=== PATIENT | female | born 1950 | race Caucasian/White ===

== ENCOUNTER 2023-08-04 11:55 | Emergency (ER) | payer MEDICARE, OTHER ==
[~2023-08-04] VITALS: Ht 160 cm; Wt 95.3 kg
[~2023-08-04 11:55] MED LIST: AMLO-258 PO; DOXY100T2 PO; DULO20CA18 PO; GABA600T10 PO; PRED20TA3 PO; ROPI0.5T37 PO
[2023-08-04] MEDS ORDERED: MELOXICAM 7.5 MG TABLET PO SCH (12:30)
[2023-08-04] MEDS ORDERED: MELO-106 PO (12:56)
[2023-08-04 13:09] VITALS: BP 146/58; PULSE 68; RESP 18; O2SAT 97
== END 2023-08-04 13:11 | disposition home or self-care (01) ==
LOC: EDH 11:55
DX: M25.861 Other specified joint disorders, right knee (principal); I10 Essential (primary) hypertension; J44.9 Chronic obstructive pulmonary disease, unspecified; Z79.1 Long term (current) use of non-steroidal anti-inflammatories (NSAID); Z79.52 Long term (current) use of systemic steroids; Z79.899 Other long term (current) drug therapy; Z88.2 Allergy status to sulfonamides; Z90.49 Acquired absence of other specified parts of digestive tract
CPT/HCPCS: 73562

== ENCOUNTER → 2024-01-23 | Outpatient (CLI) | payer MEDICARE ==
[~2024-01-23] MED LIST changes: +ACET325T51 PO; +ALBU2.5V2 IH; +AMLO-257 PO; -AMLO-258 PO; +ASPI-1443 PO; +ATOR20TA65 PO; +CHLO25TA3 PO; +ESOM40CA54 PO; +FAMO20TA8 PO; +FLUT1BLS3 IH; +IPRA3AMP24 IH; +ISOS30TA92 PO; +LEVO250T75 PO; +MAGN400T40 PO; +PRED20B PO; -PRED20TA3 PO
[2024-01-23 12:19] LABS: CHOLESTEROL 160 mg/dL (<200); HDL CHOLESTEROL 80 mg/dL (35-85); LDL DIRECT 70 mg/dL (0-99); TRIGLYCERIDES 78 mg/dL (30-200)
[2024-01-23 12:34] LABS: HEMOGLOBIN A1C 5.5 % (4.0-6.0)
== END | disposition home or self-care (01) ==
LOC: LAB 11:02
PROVIDERS: ATTEND Student in an Organized Health Care Education/Training Program
DX: E78.5 Hyperlipidemia, unspecified (principal); I12.9 Hypertensive chronic kidney disease with stage 1 through stage 4 chronic kidney disease, or unspecified chronic kidney disease; N18.2 Chronic kidney disease, stage 2 (mild); Z79.899 Other long term (current) drug therapy
CPT/HCPCS: 36415; 80061; 83036

== ENCOUNTER → 2024-02-21 | Outpatient (CLI) | payer MEDICARE ==
[~2024-02-21] MED LIST changes: -DOXY100T2 PO
== END | disposition home or self-care (01) ==
LOC: SHCH 14:54
PROVIDERS: ATTEND Student in an Organized Health Care Education/Training Program
DX: I35.8 Other nonrheumatic aortic valve disorders (principal); I25.10 Atherosclerotic heart disease of native coronary artery without angina pectoris; E78.5 Hyperlipidemia, unspecified
CPT/HCPCS: 93306

== ENCOUNTER 2024-03-09 12:23 | Emergency (ER) | payer MEDICARE ==
[~2024-03-09] VITALS: Ht 160 cm; Wt 91.2 kg
[2024-03-09 13:38] LABS: BILIRUBIN,URINE NEGATIVE (NEGATIVE); COLOR,URINE YELLOW (YELLOW); GLUCOSE, URINE (UA) NEGATIVE (NEGATIVE); KETONES,URINE 10 mg/dL (NEGATIVE); LEUKOCYTE ESTERASE ,URINE 500 Leu/uL (NEGATIVE); NITRATE,URINE NEGATIVE (NEGATIVE); OCCULT BLOOD,URINE SMALL (NEGATIVE); PROTEIN,URINE 30 mg/dL (NEGATIVE); UROBILINOGEN,URINE 0.2 mg/dL (0.2-1.0)
[2024-03-09 13:44] LABS: APPEARANCE,URINE HAZY (CLEAR)
[2024-03-09 13:45] LABS: ADD UA MICROSCOPIC YES
[2024-03-09 13:47] LABS: BACTERIA,URINE MOD /HPF (None Seen); MUCUS,URINE RARE LPF (None Seen); RBC,URINE TNTC /HPF (0-1); SQUAMOUS EPITHELIAL CELL,UR FEW /HPF (0-2); WBC,URINE TNTC /HPF (0-1)
[2024-03-09] MEDS ORDERED: DOXY100T2 PO (14:07)
[2024-03-09] MEDS: CEFTRIAXONE 1G VIAL IM ONE (14:21)
[2024-03-09] MEDS: METRONIDAZOLE 500 MG TABLET PO SCH (14:21)
[2024-03-09 14:32] VITALS: BP 150/73; PULSE 79; RESP 18; O2SAT 96
== END 2024-03-09 14:43 | disposition home or self-care (01) ==
LOC: EDH 12:23
DX: N39.0 Urinary tract infection, site not specified (principal); I10 Essential (primary) hypertension; J44.9 Chronic obstructive pulmonary disease, unspecified; Z88.2 Allergy status to sulfonamides; Z90.49 Acquired absence of other specified parts of digestive tract; Z79.899 Other long term (current) drug therapy
CPT/HCPCS: 99283; 87088; 81001; 96372; J0696

== ENCOUNTER 2024-03-21 10:16 | Emergency (ER) | payer MEDICARE ==
[~2024-03-21] VITALS: Ht 160 cm; Wt 92.1 kg
[~2024-03-21 10:16] MED LIST changes: +DOXY100T2 PO; -ESOM40CA54 PO; +ESOM40CA66 PO
[2024-03-21 11:06] LABS: BILIRUBIN,URINE NEGATIVE (NEGATIVE); COLOR,URINE YELLOW (YELLOW); GLUCOSE, URINE (UA) NEGATIVE (NEGATIVE); KETONES,URINE NEGATIVE (NEGATIVE); LEUKOCYTE ESTERASE ,URINE 500 Leu/uL (NEGATIVE); NITRATE,URINE NEGATIVE (NEGATIVE); OCCULT BLOOD,URINE MODERATE (NEGATIVE); PH,URINE 6.5 (5.0-8.0); PROTEIN,URINE 70 mg/dL (NEGATIVE); UROBILINOGEN,URINE 0.2 mg/dL (0.2-1.0)
[2024-03-21 11:11] LABS: ADD UA MICROSCOPIC YES; APPEARANCE,URINE CLOUDY (CLEAR)
[2024-03-21 11:15] LABS: BACTERIA,URINE MOD /HPF (None Seen); MUCUS,URINE RARE LPF (None Seen); RBC,URINE TNTC /HPF (0-1); SQUAMOUS EPITHELIAL CELL,UR MANY /HPF (0-2); WBC,URINE TNTC /HPF (0-1)
[2024-03-21 11:27] LABS: BASOPHILS # (AUTO) 0.02 K/uL (0.00-0.20); BASOPHILS % (AUTO) 0.2 % (0.0-5.0); EOSINOPHILS # (AUTO) 0.07 K/uL (0.00-0.70); EOSINOPHILS % (AUTO) 0.7 % (0.0-8.0); HEMATOCRIT 42.6 % (36-48); IMMATURE GRANULOCYTE ABSOLUTE 0.02 K/uL (0-1); LYMPHOCYTES # (AUTO) 1.3 K/uL (1.0-4.8); LYMPHOCYTES % (AUTO) 12.8 % (21.0-51.0); MEAN CORPUSCULAR HGB CONC 33.8 g/dL (32.0-36.0); MEAN CORPUSCULAR VOLUME 88.8 fL (79-99); MONOCYTES # (AUTO) 0.5 K/uL (0.1-1.0); MONOCYTES % (AUTO) 5.5 % (3.0-13.0); NEUTROPHILS # (AUTO) 7.8 K/uL (1.8-7.7); NEUTROPHILS % (AUTO) 80.6 % (40.0-77.0); PLATELET COUNT (AUTO) 224 K/uL (130-400); RED CELL DISTRIBUTION WIDTH 13.8 % (11.0-15.5); WHITE BLOOD COUNT (AUTO) 9.7 K/uL (4.8-10.8)
[2024-03-21 11:40] LABS: ALBUMIN 3.5 g/dL (3.5-5.0); CREATININE 0.8 mg/dL (0.5-1.0)
[2024-03-21 11:46] LABS: BILIRUBIN,TOTAL 0.6 mg/dL (0.2-1.0); TOTAL PROTEIN, SERUM 6.9 g/dL (6.0-8.3)
[2024-03-21 11:49] LABS: POTASSIUM 2.7 mmol/L (3.5-5.1)
[2024-03-21] MEDS: AZITHROMYCIN 250 MG TABLET PO STA (12:36)
[2024-03-21] MEDS: CEFTRIAXONE 1G VIAL IM STA (12:36)
[2024-03-21] MEDS: POTASSIUM BICARB/CIT AC 25 MEQ TABLET.EFF PO STA (12:36)
[2024-03-21] MEDS: 0.9%NACL 1000ML 1,000 ML IV STA (12:39)
[2024-03-21] MEDS ORDERED: IOHEXOL 350 MG/ML 100ML INFUS..BTL IV ONE (14:19)
[2024-03-21] MEDS ORDERED: CEPH500B PO (15:33)
[2024-03-21 16:04] VITALS: BP 122/61; PULSE 70; RESP 20; O2SAT 99
== END 2024-03-21 16:08 | disposition home or self-care (01) ==
LOC: EDH 10:16
DX: N39.0 Urinary tract infection, site not specified (principal); E87.6 Hypokalemia; I10 Essential (primary) hypertension; J44.9 Chronic obstructive pulmonary disease, unspecified; Z79.52 Long term (current) use of systemic steroids; Z79.82 Long term (current) use of aspirin; Z79.899 Other long term (current) drug therapy; Z88.2 Allergy status to sulfonamides; Z90.49 Acquired absence of other specified parts of digestive tract
CPT/HCPCS: 99285; 74177; 80053; 85025; 87088; 81001; 36415; 96372; J0696; Q9967

== ENCOUNTER → 2024-08-30 | Outpatient (CLI) | payer MEDICARE ==
[~2024-08-30] MED LIST changes: +APIX5TAB PO; -DOXY100T2 PO; -FAMO20TA8 PO; +GABA-1405 PO; -GABA600T10 PO; -LEVO250T75 PO; +LORA10TA7 PO; +METO25TA3 PO; +POTA-200 PO; -PRED20B PO; +SACU1TAB PO
[2024-08-30 12:38] LABS: ALBUMIN 3.6 g/dL (3.5-5.0); BILIRUBIN,TOTAL 0.5 mg/dL (0.2-1.0); CREATININE 0.9 mg/dL (0.5-1.0); POTASSIUM 4.4 mmol/L (3.5-5.1); TOTAL PROTEIN, SERUM 6.8 g/dL (6.0-8.3)
[2024-08-30 13:04] LABS: HEMOGLOBIN A1C 5.4 % (4.0-6.0)
== END | disposition home or self-care (01) ==
LOC: LAB 10:17
PROVIDERS: ATTEND Student in an Organized Health Care Education/Training Program
DX: E78.5 Hyperlipidemia, unspecified (principal); I25.83 Coronary atherosclerosis due to lipid rich plaque; Z79.899 Other long term (current) drug therapy
CPT/HCPCS: 36415; 80053; 80061; 83036

== ENCOUNTER → 2025-01-09 | Outpatient (CLI) | payer MEDICARE ==
[~2025-01-09] MED LIST changes: +ACET-3859 PO; -ACET325T51 PO
[2025-01-09 12:41] LABS: HEMOGLOBIN A1C 5.3 % (4.0-6.0)
[2025-01-09 13:03] LABS: ALBUMIN 3.6 g/dL (3.5-5.0); BILIRUBIN,TOTAL 0.4 mg/dL (0.2-1.0); CREATININE 0.8 mg/dL (0.5-1.0); POTASSIUM 4.5 mmol/L (3.5-5.1); TOTAL PROTEIN, SERUM 6.8 g/dL (6.0-8.3)
== END | disposition home or self-care (01) ==
LOC: LAB 09:45
PROVIDERS: ATTEND Student in an Organized Health Care Education/Training Program
DX: I11.0 Hypertensive heart disease with heart failure (principal); I50.20 Unspecified systolic (congestive) heart failure; E78.5 Hyperlipidemia, unspecified; I25.83 Coronary atherosclerosis due to lipid rich plaque; J44.9 Chronic obstructive pulmonary disease, unspecified; E66.9 Obesity, unspecified; Z95.5 Presence of coronary angioplasty implant and graft; Z79.899 Other long term (current) drug therapy
CPT/HCPCS: 36415; 80053; 83036; 83880

== ENCOUNTER → 2025-01-11 | Outpatient (CLI) | payer MEDICARE ==
--- NOTE | 2025-01-14 09:20 | HMCSR ---
APPROVED REPORT EXAM: Two-dimensional and M-mode echocardiogram with Doppler and color Doppler. INDICATION ICD: I25.83 Coronary atherosclerosis due to lipid rich plaque 2D Dimensions RVDd4.2 cmLVEF(%)57.9 (>50%)LVED Vol(simp.)99.0 mL IVSd1.0 (0.7-1.1cm)FS(%)30 %LVES Vol(simp.)37.0 mL LVDd4.3 (3.8-5.6cm)Ao Root(2D)2.9 (2.0-3.7cm)LVEF(%, simp.)63 % PWd0.9 (0.7-1.1cm)LVOT diam1.8 (1.8-2.4cm)LA ESV INDEX (BP)35.28 mL/m2 LVDs3.0 (2.5-4.0cm)IVC diam1.6 cm Aortic Valve AoV Vmax1.4 m/Mariela Peak GR7.5 mmHgLVOT Vmax1.2 m/s AoV VTI0.3 mAo Mean GR3.8 mmHgLVOT VTI0.30 m RAMON (VMAX)2.3 cm2AVA (VTI) 2.3 cm2 Mitral Valve MV E Vmax66.8 cm/sDECEL Ooyc286 ms MV A Vmax82.3 cm/sP 1/2 T61 ms E/A ratio0.8MVA (PHT)3.6 cm2 TDI E/E' Gczswf14.1E/E' Lateral9.0 Pulmonary Valve PV Vmax0.9 m/sPV VTI0.20 mPV Mean GR2 mmHg PV Peak GR3.2 mmHg Tricuspid Valve TR Vmax2.3 m/sRAP (EST) 3 suAgZAFL92.8 mmHg TR Peak GR20.8 mmHg Left Ventricle Left ventricular cavity size is normal. There is normal LV segmental wall motion. There is normal lef t ventricular wall thickness. LVEF is 55-60%. Stage II, diastolic dysfunction. Right Ventricle The right ventricle is normal size. The right ventricular systolic function is normal. Atria The left atrium is mildly dilated. The right atrium size is normal. Aortic Valve Aortic valve is trileaflet. Aortic valve leaflets are sclerotic but open well. Trace aortic regurgita tion. There is no aortic valvular stenosis. Mitral Valve Mitral valve leaflets are mildly sclerotic but open well. Mitral regurgitation is trace. There is no mitral valve stenosis. Tricuspid Valve The tricuspid valve leaflets appear normal. There is trace tricuspid regurgitation. Pulmonic Valve Pulmonic valve is not well visualized. There is trace pulmonic valvular regurgitation. Great Vessels The aortic root is normal in size. The IVC is normal in size and collapses >50% with inspiration. Pericardium No pericardial effusion. Other Information Quality : Average Conclusion Left ventricular cavity size is normal. LVEF is 55-60% with normal LV segmental wall motion. Stage II, diastolic dysfunction. The right ventricular systolic function is normal. The left atrium is mildly dilated. No hemodynamically significant valvular abnormalities. No pericardial effusion.
== END | disposition home or self-care (01) ==
LOC: SHCH 08:37
PROVIDERS: ATTEND Student in an Organized Health Care Education/Training Program
DX: I08.0 Rheumatic disorders of both mitral and aortic valves (principal); I11.0 Hypertensive heart disease with heart failure; I50.9 Heart failure, unspecified; I25.83 Coronary atherosclerosis due to lipid rich plaque
CPT/HCPCS: 93306

== ENCOUNTER → 2025-02-15 | Outpatient (CLI) | payer MEDICARE | END | disposition home or self-care (01) | LOC: SHCH 14:20 | PROVIDERS: ATTEND Student in an Organized Health Care Education/Training Program | DX: I87.2 Venous insufficiency (chronic) (peripheral) (principal); I87.1 Compression of vein; I73.9 Peripheral vascular disease, unspecified; I87.8 Other specified disorders of veins; R60.0 Localized edema; M79.604 Pain in right leg | CPT/HCPCS: 93925; 93970 ==

== ENCOUNTER 2025-06-02 21:22 | Emergency (ER) | payer MEDICARE ==
[~2025-06-02] VITALS: Ht 160 cm; Wt 88.5 kg
[2025-06-02] MEDS: 0.9%NACL 1000ML 1,000 ML IV ONE (22:04)
[2025-06-02 22:16] LABS: IMMATURE GRANULOCYTE ABSOLUTE 0.02 K/uL (0-1); NUCLEATED RED BLOOD CELLS 0.0 % (0.0-0.19); PLATELET COUNT (AUTO) 256 K/uL (130-400); RED BLOOD CELL COUNT(AUTO) 4.91 MIL/uL (4.00-5.50); RED CELL DISTRIBUTION WIDTH 13.2 % (11.0-15.5); WHITE BLOOD COUNT (AUTO) 7.0 K/uL (4.8-10.8)
[2025-06-02 22:19] LABS: ASPARTATE AMINOTRANSFERASE 20.0 U/L (10-37); CREATINE KINASE, TOTAL 73.0 U/L (21-232); CREATININE 0.9 mg/dL (0.5-1.0); GLOMERULAR FILTR. RATE CALC 68.0 mL/min (>90); GLUCOSE,RANDOM 105.0 mg/dL (70-105); SODIUM SERUM 145.0 mmol/L (136-145); TOTAL PROTEIN, SERUM 7.0 g/dL (6.0-8.3); UREA NITROGEN, BLOOD 22.0 mg/dL (7-18)
[2025-06-02] MEDS ORDERED: IOHEXOL 350 MG/ML 100ML INFUS..BTL IV ONE (22:38)
[2025-06-02 22:57] LABS: COVID19 (SARS ANTIGEN RAPID) PRESUMPTIVE NEGATIVE (NEGATIVE); INFLUENZA TYPE A Negative For Type A (NEGATIVE); INFLUENZA TYPE B Negative For Type B (NEGATIVE)
--- NOTE | 2025-06-02 23:20 | HMCIMG ---
EXAM: CR Chest, 1 view CLINICAL HISTORY: Dizziness. COMPARISON: Chest radiograph dated 07/15/2024. FINDINGS: The lungs show no infiltrates or other acute findings. No pleural effusion or pneumothorax. The cardiomediastinal silhouette is within normal limits. Mild atherosclerotic aorta. No acute osseous abnormality. IMPRESSION: No acute cardiopulmonary process is evident. No interval changes. /[place]
--- NOTE | 2025-06-02 23:25 | ERN ---
ED Note History of Present Illness Stated Complaint: C/O DIZZINESS, N X V, HEADACE, X 4 DAYS Chief Complaint: Dizzy/Light Headed Time Seen by MD: 21:45 Time Seen by Midlevel: 21:45 Dictation: The patient is a 74-year-old female with a history of CAD, hypertension, COPD who presents to the emergency department with multiple complaints. Patient reports that she has been having a lot of dizziness that is worse with moving associated with nausea nonbloody vomiting. Reports generalized abdominal pain. Patient denies any falls or head trauma. Denies any fevers. Allergies: Coded Allergies: Sulfa (Sulfonamide Antibiotics) (Unverified Allergy, Unknown, 11/28/22) Home Meds Active Scripts Apixaban (Eliquis) 5 Mg Tablet, 5 MG PO BID, #60 TAB 3 Refills Prov:[facility]AD[facility] 07/16/24 Apixaban (Eliquis) 5 Mg Tablet, 10 MG PO BID, #30 TAB Prov:MADDI [facility] 07/16/24 Sacubitril/Valsartan (Entresto 24 mg-26 mg Tablet) 24 Mg-26 Mg Tablet, 1 EACH PO BID, #30 TAB Prov:MADDI [facility] 07/16/24 Metoprolol Succinate (Toprol Xl) 25 Mg Tab.er.24h, 25 MG PO DAILY, #30 TAB 1 Refill Prov:MADDI [facility] 07/16/24 Ipratropium/Albuterol Sulfate (Iprat-Albut 0.5-3(2.5) mg/3 ml) 0.5 Mg-3 Mg (2.5 Mg Base)/3 Ml Ampul.neb, 1 UDVIAL IH [id number], #30 APPL Prov:GEORGI PAUL SALES REPRESENTATIVE SALES MANAGER 11/21/23 Albuterol Sulfate (Albuterol Sulfate) 2.5 Mg/3 Ml (0.083 %) Vial.neb, 2.5 MG IH [id number], #7 INH Prov:GEORGI PAUL SALES REPRESENTATIVE SALES MANAGER 11/21/23 Reported Medications Loratadine (Loratadine) 10 Mg Tablet, 10 MG PO HS, TAB 07/15/24 Potassium Chloride (Potassium Chloride) 10 Meq Tab.er.prt, 1 TAB PO DAILY 07/15/24 Fluticasone/Umeclidin/Vilanter (Trelegy Ellipta 100-62.5-25) 100-62.[address]dev, 1 PUFF IH DAILY 11/20/23 Acetaminophen (Acetaminophen) 325 Mg Tablet, 650 MG PO HS, TAB 11/20/23 Magnesium Oxide (Magnesium) 400 Mg Magnesium Tablet, 400 MG PO HS, TAB 11/20/23 Gabapentin (Gabapentin) 600 Mg Tablet, 600 MG PO HS, TAB 11/20/23 Atorvastatin Calcium (Atorvastatin Calcium) 20 Mg Tablet, 20 MG PO DAILY, TAB 11/20/23 Aspirin (Aspirin EC) 81 Mg Tablet.dr, 81 MG PO DAILY, TAB 11/20/23 Isosorbide Mononitrate (Isosorbide Mononitrate ER) 30 Mg Tab.er.24h, 30 MG PO DAILY, TAB 11/20/23 Amlodipine Besylate (Amlodipine Besylate) 5 Mg Tablet, 5 MG PO DAILY, TAB 11/20/23 Chlorthalidone (Chlorthalidone) 25 Mg Tablet, 12.5 MG PO DAILY, TAB 11/20/23 Esomeprazole Magnesium (Esomeprazole Magnesium) 40 Mg Capsule.dr, 40 MG PO DAILY, CAP 11/20/23 Ropinirole HCl (Ropinirole HCl) 0.5 Mg Tablet, 1 TAB PO HS 11/29/22 Duloxetine HCl (Duloxetine HCl) 20 Mg Capsule.dr, 1 CAP PO BID 11/29/22 Past Medical History Past Medical History: Hypertension Surgical History: Unknown Surgical History Other: HIP REPLACEMENT Social History: Negative, Lives with family RN Note Reviewed/Agreed w/PFSH: Yes Review of System Dictation Constitutional: Negative for fever,chills, and weight loss Eyes: Negative for injury, pain,redness, and discharge ENT: Negative for injury,pain or swelling Cardiovascular: Negative for chest pain, palpitations, and edema Respiratory: Negative for shortness of breath, cough, and wheezing, Abdomen/GI: Negative for diarrhea, and constipation positive for abdominal pain, nausea, vomiting Back: Negative for injury and pain : Negative for injury, bleeding and discharge MS/Extremity: Negative for injury and deformity Skin: Negative for rash, and discoloration Neuro: Negative for weakness, numbness, tingling, and seizure positive for headache, dizziness Psych: Negative for suicide ideation, homicidal ideation, and hallucinations Initial Vital Sign VS Vital Signs Date Time Temp Pulse Resp B/P (MAP) Pulse Ox O2 Delivery O2 Flow Rate FiO2 06/02/25 21:24 98.1 82 20 117/88 96 06/02/25 21:54 Room Air* 0 21 Physical Exam Dictation Vital Signs reviewed General Appearance: Alert, oriented x 3, mildly distress, well developed, nourished. Head and Face: non-traumatic. Eyes: PERRL, pink conjunctivas, eyelid no trauma, anterior chamber with arcus senilis. Ears: Pinnas intact and no signs of trauma or erythema ear canals clear and no discharge TM no erythema Nose: No discharge, no bleeding. Oropharynx: Mouth normal, tongue pink. pharynx clear,no erythema, tonsils no exudates, no abscesses noted, mucous membrane moist Neck: Supple, non-tender, no thyromegaly, no masses, no JVD, no bruits Breast:Deferred Chest:No tenderness, no crepitus, no paradoxical movement, no retractions Lungs:Clear, well-ventilated, symmetric, no rales, no wheezing, no rhonchi, no stridor, good breath sounds bilaterally Heart: Regular rate, regular rhythm, no murmur, no gallops Vascular: no peripheral edema, Abdomen: Soft, positive bowel sounds, nondistended, no guarding, nontender, no rebound, no masses no hepatomegaly, no splenomegaly, no Howard's sign, no hernias. Rectal: Deferred Genital: Deferred Neurological: Normal speech, motor function intact, sensory function intact , upper extremities equal in strength, lower extremities equal in strength Musculoskeletal: Neck nontender, full range of motion, back nontender, full range of motion, Extremities: nontender, full range of motion Skin: Color pink, dry, no turgor, no rash, no lacerations, no abrasions, no contusions. Lymphatic: Deferred Results (Laboratory/Radiology) Laboratory/Radiology Laboratory Tests Test 06/02/25 21:53 06/02/25 21:57 06/02/25 22:32 Urine Color LIGHT-YELLOW (YELLOW) Urine Appearance CLEAR (CLEAR) Urine pH 6.0 (5.0-8.0) Urine Specific [place] <=1.005 (1.001-1.031) Urine Protein NEGATIVE mg/dL (NEGATIVE) Urine Glucose (UA) NEGATIVE mg/dL (NEGATIVE) Urine Ketones NEGATIVE mg/dL (NEGATIVE) Urine Occult Blood NEGATIVE (NEGATIVE) Urine Nitrate NEGATIVE (NEGATIVE) Urine Bilirubin NEGATIVE mg/dL (NEGATIVE) Urine Urobilinogen 0.2 mg/dL (0.2-1.0) Urine Leukocyte Esterase NEGATIVE Deondre/uL White Blood Count 7.0 K/uL (4.8-10.8) Red Blood Count 4.91 MIL/uL (4.00-5.50) Hemoglobin 15.3 g/dL (12.0-16.0) Hematocrit 46.3 % (36-48) Mean Corpuscular Volume 94.3 fL (79-99) Mean Corpuscular Hemoglobin 31.2 pg (27.0-33.0) Mean Corpuscular Hemoglobin Concent 33.0 g/dL (32.0-36.0) Red Cell Distribution Width 13.2 % (11.0-15.5) Platelet Count 256 K/uL (130-400) Mean Platelet Volume 9.9 fL (7.5-10.5) Immature Granulocyte % (Auto) 0.3 % (0-1) Neutrophils (%) (Auto) 70.7 % (40.0-77.0) Lymphocytes (%) (Auto) 21.7 % (21.0-51.0) Monocytes (%) (Auto) 6.8 % (3.0-13.0) Eosinophils (%) (Auto) 0.4 % (0.0-8.0) Basophils (%) (Auto) 0.1 % (0.0-5.0) Neutrophils # (Auto) 5.0 K/uL (1.8-7.7) Lymphocytes # (Auto) 1.5 K/uL (1.0-4.8) Monocytes # (Auto) 0.5 K/uL (0.1-1.0) Eosinophils # (Auto) 0.03 K/uL (0.00-0.70) Basophils # (Auto) 0.01 K/uL (0.00-0.20) Absolute Immature Granulocyte (auto 0.02 K/uL (0-1) Nucleated Red Blood Cells 0.0 % (0.0-0.19) Sodium Level 145 mmol/L (136-145) Potassium Level 3.1 mmol/L (3.5-5.1) L Chloride Level 105 mmol/L (101-111) Carbon Dioxide Level 30 mmol/L (21-32) Blood Urea Nitrogen 22 mg/dL (7-18) H Creatinine 0.9 mg/dL (0.5-1.0) Glomerular Filtration Rate Calc 68 mL/min (>90) Random Glucose 105 mg/dL (70-105) Total Calcium 8.3 mg/dL (8.5-10.1) L Total Bilirubin 0.4 mg/dL (0.2-1.0) Direct Bilirubin 0.1 mg/dL (0.0-0.3) Aspartate Amino Transf (AST/SGOT) 20 U/L (10-37) Alanine Aminotransferase (ALT/SGPT) 29 U/L (12-78) Alkaline Phosphatase 74 U/L (50-136) Total Creatine Kinase 73 U/L (21-232) Troponin I High Sensitivity 4 ng/L (4-50) Total Protein 7.0 g/dL (6.0-8.3) Albumin 3.9 g/dL (3.5-5.0) Lipase 44 U/L (16-77) Influenza Type A Antigen Negative For Type A Influenza Type B Antigen Negative For Type B SARS-CoV-2 Antigen (Rapid) PRESUMPTIVE NEGATIVE REASON: dizzy ORDERING PHYSICIAN: BRYANT FONTANEZ SLIP SEAT COVERER PROCEDURE: HEAD WO - CT HEAD/BRAIN W/O CONTRAST EXAM: Non-contrast CT examination of the Brain. CLINICAL HISTORY: Dizziness. TECHNIQUE: Thin collimated axial CT images of the brain were obtained, with sagittal and coronal reformatted images also submitted. CT scan done according to ALARA (As Low as Reasonably Achievable). CONTRAST USED: None. COMPARISON: None. FINDINGS: No acute intracranial abnormality is present. No acute cortical infarction, hemorrhage, mass, or mass effect. Mild generalized brain atrophy and chronic microvascular ischemic white matter disease. No hydrocephalus or abnormal extra-axial fluid collections. The posterior fossa is unremarkable. The skull base and calvarium are intact. The included portions of the paranasal sinuses and mastoid air cells are clear. IMPRESSION: No acute intracranial abnormality is present. Mild generalized brain atrophy and chronic microvascular ischemic white matter disease. /[place] ORDERING PHYSICIAN: BRYANT FONTANEZ [facility] PROCEDURE: ABD PEL W - CT ABDOMEN/PELVIS W/CONTRAST EXAM: CT Abdomen and Pelvis with IV contrast. CLINICAL HISTORY: Generalized abdominal pain. TECHNIQUE: Thin collimated axial CT images of the abdomen and pelvis with intravenous contrast were obtained, with sagittal and coronal reformatted images also submitted. A CT scan is done according to ALARA (As Low As Reasonably Achievable). COMPARISON: Prior CT abdomen and pelvis dated 03/21/24. FINDINGS: Unremarkable visualized lung parenchyma. No focal abnormality within the pancreas, spleen, or adrenals. Nonenhancing Bosniak class I cysts in the bilateral kidneys, the largest measures up to 0.6 cm at the left renal midpole. Extrarenal pelvis on the right side. There are a few tiny 0.2 cm to 0.4 cm nonenhancing simple hepatic cysts in the right and left hepatic lobes. Status post cholecystectomy. Small hiatal hernia. There is no obvious bowel wall thickening. Bowel loops are normal in caliber without evidence of obstruction or ileus. The appendix is normal. There is no abnormality within the urinary bladder. Unremarkable reproductive organs. Scattered atherosclerotic plaques and wall calcifications in the aorta and its branches. Abdominal and pelvic vessels are patent. No lymphadenopathy. No free fluid. There is no acute osseous abnormality. Mild thoracolumbar spondylosis. There is a right hip total replacement with intact metallic implants. IMPRESSIONS: No acute process in the abdomen or pelvis. Small hiatal hernia. Tiny simple hepatic cysts. Simple renal cortical cysts bilaterally. Extrarenal pelvis on the right side. Mild thoracolumbar spondylosis. No significant interval changes. /[place] REASON: dizzy ORDERING PHYSICIAN: BRYANT FONTANEZ [facility] PROCEDURE: CXR1VW - CHEST 1VW EXAM: CR Chest, 1 view CLINICAL HISTORY: Dizziness. COMPARISON: Chest radiograph dated 07/15/2024. FINDINGS: The lungs show no infiltrates or other acute findings. No pleural effusion or pneumothorax. The cardiomediastinal silhouette is within normal limits. Mild atherosclerotic aorta. No acute osseous abnormality. IMPRESSION: No acute cardiopulmonary process is evident. No interval changes. /[place] [facility] Reviewed?: Yes EKG: (+) rhythm (Sinus rhythm) EKG Comment: Date:06/02/2025 Time:2211 Ventricular rate:72 [place] interval:146 QRS duration:97 QT/QTc:392/430 EKG interpretation: Sinus rhythm Reviewed by ED Attending no STEMI ED Course ED Course Orders Procedure Category Date Status Time Cbc With Differential LAB 06/02/25 Complete 21:53 Troponin I High LAB 06/02/25 Complete Sensitivity 21:53 Urinalysis Profile LAB 06/02/25 Complete 21:53 12 Lead Ekg Tracing- EKG 06/02/25 Logged Technical 21:53 0.9%Nacl 1000ml (Ns PHA 06/02/25 Complete 1000ml) 22:00 Ondansetron 4mg Inj PHA 06/02/25 Complete (Zofran 4mg Inj) 22:00 Pantoprazole 40mg Inj PHA 06/02/25 Complete (Protonix 40mg Inj 22:00 Creatine Kinase, Total LAB 06/02/25 Complete 21:53 Chest 1vw RAD 06/02/25 Resulted 21:53 Lipase LAB 06/02/25 Complete 21:53 Basic Metabolic Panel LAB 06/02/25 Complete 21:53 Hepatic Function Panel LAB 06/02/25 Complete 21:53 Orthostatic Vital CPOE 06/02/25 Transmitted Signs 21:53 Ct Head/Brain W/O CT 06/02/25 Resulted Contrast 22:22 Ct Abdomen/Pelvis CT 06/02/25 Resulted W/Contrast 22:22 Covid19 (Sars Antigen LAB 06/02/25 Complete Rapid) 22:22 Influenza Type A & B, LAB 06/02/25 Complete Rapid 22:22 Potassium Bicarb/Cit PHA 06/02/25 Complete Ac 25meq (K-Lyte Ta 22:30 Iohexol (Omnipaque) PHA 06/02/25 Complete 22:38 Ondansetron 4mg Inj PHA 06/02/25 Complete (Zofran 4mg Inj) 23:00 Current Medications Medications (Trade) Dose Ordered Sig/Marce Route PRN Reason Start Time Stop Time Status Last Admin Dose Admin Iohexol (Omnipaque) 35,000 mg STK-MED ONCE IV 06/02/25 22:38 06/02/25 22:39 DC Ondansetron HCl (zoFRAN 4MG INJ) 4 mg ONCE ONCE IVP 06/02/25 22:00 06/02/25 22:01 DC 06/02/25 22:04 Ondansetron HCl (zoFRAN 4MG INJ) 4 mg ONCE ONCE IVP 06/02/25 23:00 06/02/25 23:01 DC 06/02/25 23:41 Pantoprazole Sodium (PROTonix 40MG INJ) 40 mg ONCE ONCE IVP 06/02/25 22:00 06/02/25 22:01 DC 06/02/25 22:04 Potassium Bicarbonate (K-Lyte Tablet Eff 25 Meq Tablet.eff) 25 meq ONCE ONCE PO 06/02/25 22:30 06/02/25 22:31 DC 06/02/25 22:38 Sodium Chloride 1,000 ml @ 0 mls/hr ONCE ONCE IV 06/02/25 22:00 06/02/25 22:01 DC 06/02/25 22:04 Vital Signs Date Time Temp Pulse Resp B/P (MAP) Pulse Ox O2 Delivery O2 Flow Rate FiO2 06/02/25 23:54 98.2 70 18 136/66 96 Room Air* 0 06/02/25 23:52 98.2 72 18 134/66 96 Room Air* 0 06/02/25 23:50 98.2 75 18 126/75 96 Room Air* 0 06/02/25 21:54 98.2 88 18 142/65 99 Room Air* 0 06/02/25 21:24 98.1 82 20 117/88 96 Medical Decision Making MDM The patient is a 74-year-old female with a history of CAD, hypertension, COPD who presents to the emergency department with multiple complaints. Patient reports that she has been having a lot of dizziness that is worse with moving associated with nausea nonbloody vomiting. Reports generalized abdominal pain. Patient denies any falls or head trauma. Denies any fevers. CBC showed no leukocytosis, no anemia, chemistry showed mild hypokalemia which was replaced negative lipase, negative troponin, negative liver enzymes, urinalysis unremarkable, CT head showed no acute pathology, CT abdomen showed no acute pathology. Patient received IV fluids in ER. Patient re-evaluated and reports she feels better. Reports no longer feeling dizzy. I spoke to the patient for possible admission. At this time patient does not want to be admitted to the hospital would rather go home and follow up with her primary doctor. On physical exam patient is in no acute distress, nontoxic appearance, stable vital signs. Patient will be discharged to follow up with PCP. Differential diagnosis: Gastroenteritis, vertigo, dehydration, electrolyte imbalance, intracerebral hemorrhage Need for hospitalization: Patient does not meet criteria for hospitalization. There are no social concerns with this patient. DX & DISP Disposition: Discharge Departure Impression: Primary Impression: Gastroenteritis Additional Impressions: Mild dehydration, Dizziness, Hypokalemia Condition: Stable Additional Instructions: Your labs were unremarkable except for mild hypokalemia (low potassium). Your imaging did not show any acute pathology. Please follow up with your primary doctor in 1-2 days. Continue oral hydration at home. If anything worsens please return to ER. FOLLOW-UP WITH PRIMARY CARE PROVIDER IN 1 TO 2 DAYS. TAKE MEDICATIONS DIRECTED HERE IN THE EMERGENCY ROOM. OKAY TO CONTINUE HOME MEDICATIONS UNLESS OTHERWISE DISCUSSED DURING YOUR VISIT IN THE EMERGENCY ROOM TODAY. RETURN TO YOUR NEAREST EMERGENCY ROOM IF SYMPTOMS WORSEN OR IF THERE IS NO IMPROVEMENT. CALL 911 IF YOU NEED IMMEDIATE ASSISTANCE. TAKE TYLENOL [id number] NEEDED AND IF NO CONTRAINDICATIONS ARE PRESENT. INCREASE ORAL HYDRATION. A WOUND CULTURE OR URINE CULTURE WAS ORDERED HERE IN THE EMERGENCY ROOM DEPARTMENT PLEASE FOLLOW-UP WITH PRIMARY CARE PROVIDER AND ADVISE THEM TO GET REPEAT PORTS FROM OUR FACILITY. IF YOU HAD ANY JOSE WRAP/SPLINTS THAT WERE APPLIED HERE, PLEASE DO NOT REMOVE THEM UNTIL YOU SEE YOUR PRIMARY CARE OR SPECIALTY. Referrals: TJ GALDAMEZ MD (PCP) Time of Disposition: 00:59 I have reviewed the case, and I agree with, Diagnosis and Plan BRYANT FONTANEZ [facility] Jun 02, 2025 23:25
--- NOTE | 2025-06-02 23:47 | HMCIMG ---
EXAM: Non-contrast CT examination of the Brain. CLINICAL HISTORY: Dizziness. TECHNIQUE: Thin collimated axial CT images of the brain were obtained, with sagittal and coronal reformatted images also submitted. CT scan done according to ALARA (As Low as Reasonably Achievable). CONTRAST USED: None. COMPARISON: None. FINDINGS: No acute intracranial abnormality is present. No acute cortical infarction, hemorrhage, mass, or mass effect. Mild generalized brain atrophy and chronic microvascular ischemic white matter disease. No hydrocephalus or abnormal extra-axial fluid collections. The posterior fossa is unremarkable. The skull base and calvarium are intact. The included portions of the paranasal sinuses and mastoid air cells are clear. IMPRESSION: No acute intracranial abnormality is present. Mild generalized brain atrophy and chronic microvascular ischemic white matter disease. /[place]
--- NOTE | 2025-06-02 23:52 | HMCIMG ---
EXAM: CT Abdomen and Pelvis with IV contrast. CLINICAL HISTORY: Generalized abdominal pain. TECHNIQUE: Thin collimated axial CT images of the abdomen and pelvis with intravenous contrast were obtained, with sagittal and coronal reformatted images also submitted. A CT scan is done according to ALARA (As Low As Reasonably Achievable). COMPARISON: Prior CT abdomen and pelvis dated 03/21/24. FINDINGS: Unremarkable visualized lung parenchyma. No focal abnormality within the pancreas, spleen, or adrenals. Nonenhancing Bosniak class I cysts in the bilateral kidneys, the largest measures up to 0.6 cm at the left renal midpole. Extrarenal pelvis on the right side. There are a few tiny 0.2 cm to 0.4 cm nonenhancing simple hepatic cysts in the right and left hepatic lobes. Status post cholecystectomy. Small hiatal hernia. There is no obvious bowel wall thickening. Bowel loops are normal in caliber without evidence of obstruction or ileus. The appendix is normal. There is no abnormality within the urinary bladder. Unremarkable reproductive organs. Scattered atherosclerotic plaques and wall calcifications in the aorta and its branches. Abdominal and pelvic vessels are patent. No lymphadenopathy. No free fluid. There is no acute osseous abnormality. Mild thoracolumbar spondylosis. There is a right hip total replacement with intact metallic implants. IMPRESSIONS: No acute process in the abdomen or pelvis. Small hiatal hernia. Tiny simple hepatic cysts. Simple renal cortical cysts bilaterally. Extrarenal pelvis on the right side. Mild thoracolumbar spondylosis. No significant interval changes. /[place]
--- NOTE | 2025-06-03 00:02 | NUR ---
ORTHO VS DONE- NEGATIVE
[2025-06-03 00:46] LABS: APPEARANCE,URINE CLEAR (CLEAR); GLUCOSE, URINE (UA) NEGATIVE (NEGATIVE); LEUKOCYTE ESTERASE ,URINE NEGATIVE Leu/uL (NEGATIVE); NITRATE,URINE NEGATIVE (NEGATIVE); OCCULT BLOOD,URINE NEGATIVE (NEGATIVE)
[2025-06-03 00:51] LABS: ADD UA MICROSCOPIC NO
[2025-06-03 01:11] VITALS: BP 132/62; PULSE 70; RESP 18; TEMP 98.2; O2SAT 98
--- NOTE | 2025-06-03 06:40 | EKG ---
[facility] Test Date: 2025-06-02 Test Time: 22:12:38 Pat Name: SETH BOND Department: [facility] Room: Gender: F Finish Specialist: KIRK : 1950 Requested By: BRYANT FONTANEZ Order Number: [id number] Reading MD: Thierry Bar Measurements Intervals [place] Rate: 72 P: 33 WY: 146 QRS: 0 QRSD: 97 T: 93 QT: 392 QTc: 430 Interpretive Statements Sinus rhythm Low voltage, precordial leads Compared to ECG 07/14/2024 12:52:51 Low QRS voltage now present Myocardial infarct finding no longer present Electronically Signed On 06-03-2025 15:02:02 CDT by Thierry Bar Please click the below link to view image of tracing.
== END 2025-06-03 01:13 | disposition home or self-care (01) ==
LOC: EDH 21:22
DX: K52.9 Noninfective gastroenteritis and colitis, unspecified (principal); E86.0 Dehydration; R42 Dizziness and giddiness; E87.6 Hypokalemia; I10 Essential (primary) hypertension; Z79.01 Long term (current) use of anticoagulants; Z79.82 Long term (current) use of aspirin; Z79.899 Other long term (current) drug therapy; Z88.2 Allergy status to sulfonamides; Z20.822 Contact with and (suspected) exposure to COVID-19
CPT/HCPCS: 99285; 70450; 96374; 71045; 96375; 87426; 82550; 80076; 84484; 80048; 83690; 85025; 87804 ×2; 81003; 36415; 74177; 96376; 93005; J2405 ×2; J2470; Q9967